=== PATIENT | female | born 1950 | race Caucasian/White ===

== ENCOUNTER 2017-02-25 10:53 | Emergency (ER) | payer OTHER, BC ==
[~2017-02-25] VITALS: Ht 162.6 cm; Wt 65.8 kg
[2017-02-25 10:53] VITALS: BP 132/87
[2017-02-25] MEDS ORDERED: CLONAZEPAM 0.50.5 M1 PO (10:58)
[2017-02-25] MEDS ORDERED: LOSARTAN-HCTZ1 EAC2 PO (10:58)
[2017-02-25] MEDS ORDERED: NAPROSYN500 MG PO (10:59)
[2017-02-25] MEDS ORDERED: WELLBUTRIN 100100 MG PO (10:59)
[2017-02-25] MEDS ORDERED: IBUPROFEN 600600 M1 PO (11:48)
[2017-02-25] MEDS ORDERED: FLEXERIL PO (11:48)
== END 2017-02-25 12:03 | disposition home or self-care (01) ==
LOC: ER 10:53
DX: S16.1XXA Strain of muscle, fascia and tendon at neck level, initial encounter (principal); S80.02XA Contusion of left knee, initial encounter; S80.01XA Contusion of right knee, initial encounter; F32.9 Major depressive disorder, single episode, unspecified; I10 Essential (primary) hypertension; V49.40XA Driver injured in collision with unspecified motor vehicles in traffic accident, initial encounter; Y93.89 Activity, other specified; Y92.89 Other specified places as the place of occurrence of the external cause; Y99.8 Other external cause status